=== PATIENT | male | born 1975 | race Caucasian/White ===

== ENCOUNTER → 2021-01-24 | Outpatient (CLI) | payer BC ==
--- NOTE | 2021-01-24 13:28 | RAD ---
MR#: [id number] Date of Study: 01/24/2021 Ordering Physician: PRETTY GONSALEZ, Referring Physician: PRETTY GONSALEZ, Tech: APPROVED REPORT Bilateral Lower Extremity Venous Study for DVT Patient Location: OUT-PATIENT Indications Lower Extremity Pain: Lower Extremity Edema: Varicose Veins The bilateral lower extremity deep veins were evaluated for thrombus with color Doppler, spectral and grayscale images. On the right the grayscale images of the common femoral, superficial femoral and popliteal veins do n ot demonstrate any evidence of thrombus and these veins appear to be compressible. The below-knee vei ns were not well visualized but grossly appear to be compressible. Spectral imaging and color Doppler do not reveal any evidence of obstruction to flow with normal respirophasic variation above the knee . Below the knee there is spontaneous flow noted. On the left, the grayscale images of the common femoral, superficial femoral and popliteal veins do n ot demonstrate any evidence of thrombus and these veins appear to be compressible. The below-knee vei ns again were not well visualized but grossly appear to be compressible. Spectral imaging and color D oppler do not reveal any evidence of obstruction to flow with normal respirophasic variation above th e knee. The below-knee veins demonstrate spontaneous flow. Vein Imaging (Right) CFV (R): Compressible SFJ (R): Compressible FEM (R): Compressible POP (R): Compressible DFV (R): Compressible PTV (R): Compressible Vein Imaging (Left) CFV (L): Compressible SFJ (L): Compressible FEM (L): Compressible POP (L): Compressible DFV (L): Compressible PTV (L): Compressible Critical Notification Critical Value: No <Conclusion> 1. Technically difficult study but no clear evidence of DVT in the bilateral lower extremity. Signed by : Pretty Gonsalez, Electronically Approved : 01/24/2021 13:28:05
--- NOTE | 2021-01-24 13:36 | RAD ---
MR#: [id number] Date of Study: 01/24/2021 Ordering Physician: PRETTY GONSALEZ, Referring Physician: PRETTY GONSALEZ, Tech: APPROVED REPORT Patient Location : OUT-PATIENT Indications Lower Extremity Pain : Lower Extremity Edema : Ultrasound evaluation of the lower extremities reveals multiple bilateral venous varicosities. The r ight lesser saphenous vein did not reveal any evidence of reflux. The left lesser saphenous vein was not well visualized. The bilateral greater saphenous veins were previously ablated. Multiple perfo rators noted in the bilateral lower extremities are notable for reflux of greater than 2 seconds. Critical Notification Critical Value: No <Conclusion> 1. 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 No significant reflux in the right lesser saphenous vein. Prior bilateral greater saphenous vein ablation bilaterally. Signed by : Pretty Gonsalez, Electronically Approved : 01/24/2021 13:36:00
== END ==
LOC: US 08:41
PROVIDERS: ATTEND Internal Medicine Cardiovascular Disease
DX: I87.2 Venous insufficiency (chronic) (peripheral) (principal); R60.0 Localized edema; I83.93 Asymptomatic varicose veins of bilateral lower extremities
CPT/HCPCS: 93970

== ENCOUNTER 2021-08-24 11:46 | Emergency (ER) | payer BC ==
[~2021-08-24] VITALS: Ht 188 cm; Wt 163.0 kg
[2021-08-24] MEDS ORDERED: methylPREDNISolone ACETATE 40 MG/ML VIAL. IM ONE (12:30)
[2021-08-24] MEDS ORDERED: HYDROcodone/APAP 7.5/325MG 1 TAB TABLET PO ONE (12:30)
[2021-08-24] MEDS ORDERED: KETOROLAC 60 MG/2 ML VIAL. IM ONE (12:30)
--- NOTE | 2021-08-24 14:14 | RAD ---
Examination: Lower Extremity Venous Doppler Ultrasound History: Right lower extremity leg pain Comparison: None Procedure: Sanchez scale, color flow 2D and spectal waveform analysis images are obtained with and witho ut compression in the area of the common femoral vein, superficial femoral vein - femoral vein juncti on, main femoral vein (superficial femoral vein) and popliteal vein. Veins of the proximal calf are a lso imaged. Findings: There is normal duplex flow, color flow and compressibility of all visualized vein segments. No evide nce of deep venous thrombus is present. Impression: No evidence of DVT in the right lower extremity venous system. Electronically signed by: Dxa Shelby MD (08/24/2021 2:12 PM) [id number]
[2021-08-24 15:00] VITALS: BP 149/98
[2021-08-24] MEDS ORDERED: MAGNESIUM CITRATE 296 ML SOLUTION. PO ONE (15:00)
--- NOTE | 2021-08-24 15:10 | PHYS DOC ---
Past History Past Surgical History: No Surgical History Alcohol Use: None General Adult EDM: Chief Complaint: LOWER EXT PAIN HPI: HPI: Patient is a 46-year-old male who presents with lower back pain that radiates down his right leg into his calf. Patient states he was seen by his PCP on Wednesday and prescribed Flexeril. Patient reports he has been taking Flexeril and ibuprofen at home and pain has increased. Patient has full range of motion, no swelling noted. Denies shortness of breath. Denies injury. No history of DVT. History of hypertension. Review of Systems: Review of Systems: ROS At least 10 ROS systems have been reviewed and are negative except as documented in the HPI. General: Negative except as outlined in HPI above. Skin: Negative except as outlined in HPI above. HEENT: Negative except as outlined in HPI above. Neck: Negative except as outlined in HPI above. Respiratory: Negative except as outlined in HPI above.. Cardiovascular: Negative except as outlined in HPI above. Abdomen: Negative except as outlined in HPI above. : Negative except as outlined in HPI above. Back/MSK: Negative except as outlined in HPI above. Neuro: Negative except as outlined in HPI above. Psych: Negative except as outlined in HPI above. Current Medications: Current Meds: Current Medications Medications (Trade) Dose Ordered Sig/Ambar Start Time Stop Time Status Last Admin Dose Admin Acetaminophen/ Hydrocodone Bitart (Lortab 7.5/325) 1 tab 1X ONCE 08/24/21 12:30 08/24/21 12:49 DC 08/24/21 12:44 1 TAB Ketorolac Tromethamine (Toradol Im) 60 mg 1X ONCE 08/24/21 12:30 08/24/21 12:49 DC 08/24/21 12:43 60 MG Magnesium Citrate (Citroma) 296 ml 1X ONCE 08/24/21 15:00 08/24/21 15:01 DC Methylprednisolone Acetate (DEPO-Medrol IM) 40 mg 1X ONCE 08/24/21 12:30 08/24/21 12:49 DC 08/24/21 12:43 40 MG Allergies: Allergies: Allergies Coded Allergies Type Severity Reaction Last Updated Verified No Known Drug Allergies 08/24/21 No Physical Exam: PE: Constitutional: Well developed, well nourished, no acute distress, non-toxic appearance. [] HENT: Normocephalic, atraumatic, bilateral external ears normal, oropharynx moist, no oral exudates, nose normal. [] Eyes: PERRLA, EOMI, conjunctiva normal, no discharge. [] Neck: Normal range of motion, no tenderness, supple, no stridor. [] Cardiovascular:Heart rate regular rhythm, no murmur [] Lungs & Thorax: Bilateral breath sounds clear to auscultation [] Abdomen: Bowel sounds normal, soft, no tenderness, no masses, no pulsatile masses. [] Skin: Warm, dry, no erythema, no rash. [] Back: Lower back tenderness, no CVA tenderness. [] Extremities: Right leg tenderness, no cyanosis, no clubbing, ROM intact, no edema. [] Neurologic: Alert and oriented X 3, normal motor function, normal sensory function, no focal deficits noted. [] Psychologic: Affect normal, judgement normal, mood normal. [] Current Patient Data: Vital Signs: Vital Signs Date Time Temp Pulse Resp B/P (MAP) Pulse Ox O2 Delivery O2 Flow Rate FiO2 08/24/21 13:15 57 18 149/101 (117) 100 Room Air 08/24/21 11:57 98.7 EKG: EKG: [] Radiology/Procedures: Radiology/Procedures: [] Heart Score: C/O Chest Pain: No Risk Factors: Risk Factors: DM, Current or recent (<one month) smoker, HTN, HLP, family history of CAD, obesity. Risk Scores: Score 0 - 3: 2.5% MACE over next 6 weeks - Discharge Home Score 4 - 6: 20.3% MACE over next 6 weeks - Admit for Clinical Observation Score 7 - 10: 72.7% MACE over next 6 weeks - Early Invasive Strategies Course & Med Decision Making: Course & Med Decision Making Pertinent Labs and Imaging studies reviewed. (See chart for details) [] 46-year-old male presents with lower back pain that radiates down the back of his leg into his calf. Patient states he was seen by his PCP on Wednesday and given prescription for Flexeril and a Toradol injection. Patient states that pain has increased since Wednesday. Denies saddle anesthesia. No urinary retention or loss of bowel. Patient given Depo-Medrol injection, 5/325 hydrocodone, Toradol injection. Ultrasound of right calf ordered to rule out DVT. Ultrasounds negative for DVT. Patient reports that his pain has improved. Advised patient he most likely has sciatic nerve pain and needs to continue taking Flexeril and Motrin at home for pain. Patient should follow-up with his PCP in 2 to 3 days if pain continues. Discussed return precautions. Patient reports he understands discharge instructions. Patient is hemodynamically stable upon disposition and ambulated on his own out of the emergency room. Dragon Disclaimer: Dragon Disclaimer: This electronic medical record was generated, in whole or in part, using a voice recognition dictation system. Departure Departure: Impression: Primary Impression: Sciatic nerve pain Qualified Codes: M54.31 - Sciatica, right side Disposition: HOME / SELF CARE / HOMELESS Condition: STABLE Referrals: ISADORA DOMINGO MD (PCP) Patient Instructions: Sciatica, [id number] Additional Instructions: You are seen in the emergency room for right sided lower back pain that radiated into your calf. You were given Depo-Medrol IM, hydrocodone, Toradol injection, which improved your pain. Ultrasound of your right lower leg was negative for DVT. Please continue taking the Flexeril that was prescribed by your PCP along with Motrin to help with symptoms. If pain continues please follow-up with your PCP in the next 2 to 3 days. Return to emergency room with worsening symptoms or concerns. EMERGENCY DEPARTMENT GENERAL DISCHARGE INSTRUCTIONS Thank you for coming to [facility] (ED) today and trusting us with you care. We trust that you had a positivie experience in our Emergency Department. If you wish to speak to the department management, you may call the director at [phone]. YOUR FOLLOW UP INSTRUCTIONS ARE FOLLOWS: 1. Do you have a private Doctor? If you do not have a private doctor, please ask for a resource list of physicians or clinics that may be able to assist you with follow up care. 2. The Emergency Physician has interpreted your x-rays. The X-Ray specialist will also review them. If there is a change in the findings, you will be notified in 48 hours when at all possible. 3. A lab test or culture has been done, your results will be reviewed and you will be notified if you need a change in treatment. ADDITIONAL INSTRUCTIONS AND INFORMATION: 1. Your care today has been supervised by a physician who is specially trained in emergency care. Many problems require more than one evaluation for a complete diagnosis and treatment. We recommend that you schedule your follow up appointment as recommended to ensure complete treatment of you illness or injury. If you are unable to obtain follow up care and continue to have a problem, or if your condition worsens, we recommend that you return to the ED. 2. We are not able to safely determine your condition over the phone nor are we able to give sound medical advice over the phone. For these safety reasons, if you call for medical advice we will ask you to come to the ED for further evaluation. 3. If you have any questions regarding these discharge instructions please call the ED at [phone]. SAFETY INFORMATION: In the interest of safety, wellness, and injury prevention; we encourage you to wear your sealbelt, if you smoke; quite smoking, and we encourage family to use a protective helmet for bicycling and other sporting events that present an increased risk for head injury. IF YOUR SYMPTOMS WORSEN OR NEW SYMPTOMS DEVELOP, OR YOU HAVE CONCERNS ABOUT YOUR CONDITION; OR IF YOUR CONDITION WORSENS WHILE YOU ARE WAITING FOR YOUR FOLLOW UP APPOINTMENT; EITHER CONTACT YOUR PRIMARY CARE DOCTOR, THE PHYSICIAN WHOSE NAME AND NUMBER YOU WERE GIVEN, OR RETURN TO THE ED IMMEDIATELY. MONICA MATHEWS APRN Aug 24, 2021 15:10
== END 2021-08-24 15:20 | disposition home or self-care (01) ==
LOC: ER 11:46
DX: M54.31 Sciatica, right side (principal); M79.604 Pain in right leg
CPT/HCPCS: 93971; 96372; 99285; J1030; J1885